=== PATIENT | male | born 1950 | race African-American/Black ===

== ENCOUNTER 2017-07-13 15:59 | Emergency (ER) | payer MEDICAID ==
[~2017-07-13] VITALS: Ht 188 cm; Wt 91.0 kg
[2017-07-13 18:22] LABS: BASOPHILS % 0.6 % (0.0-2.0); EOSINOPHILS % 0.4 % (0.0-5.0); HEMOGLOBIN. 12.5 g/dL (14.0-18.0); MEAN CORPUSCULAR HEMOGLOBIN 32.5 pg (28.0-32.0); MEAN CORPUSCULAR VOLUME 95.9 fL (80.0-94.0); MEAN PLATELET VOLUME 6.6 fl (7.4-10.4); PLATELET 260 x1000/uL (130-400); RED BLOOD CELL COUNT 3.85 mill/uL (4.7-6.1)
[2017-07-13 18:26] LABS: INR 1.2; PROTHROMBIN TIME 12.2 sec (9.4-11.6)
[2017-07-13 18:27] LABS: CHLORIDE 110 mEq/L (98-107)
[2017-07-13 18:32] LABS: ETHANOL BLOOD < 10 mg/dL
[2017-07-13 19:50] LABS: CLARITY URINE CLEAR (CLEAR); COLOR URINE DARK YELLOW (YELLOW); KETONES URINE TRACE (NEGATIVE); LEUKOCYTE ESTERASE URINE NEGATIVE (NEGATIVE); NITRITE URINE NEGATIVE (NEGATIVE); OCCULT BLOOD URINE NEGATIVE (NEGATIVE); PROTEIN URINE TRACE (NEGATIVE); SPECIFIC GRAVITY URINE 1.025 (1.005-1.030)
[2017-07-13 20:35] VITALS: BP 149/89
== END 2017-07-13 20:38 | disposition home or self-care (01) ==
LOC: ER 16:05
DX: S00.01XA Abrasion of scalp, initial encounter (principal); S00.81XA Abrasion of other part of head, initial encounter; E86.0 Dehydration; D53.9 Nutritional anemia, unspecified; R17 Unspecified jaundice; E87.8 Other disorders of electrolyte and fluid balance, not elsewhere classified; D72.810 Lymphocytopenia; F10.20 Alcohol dependence, uncomplicated; R26.81 Unsteadiness on feet; F17.200 Nicotine dependence, unspecified, uncomplicated; W18.39XA Other fall on same level, initial encounter; Y93.89 Activity, other specified; Y92.89 Other specified places as the place of occurrence of the external cause; Y99.8 Other external cause status; Y90.0 Blood alcohol level of less than 20 mg/100 ml
CPT/HCPCS: 36415; 70450; 71045; 80053; 80307; 81003; 83036; 83880; 84484; 85025; 85610; 93005; 99285; G0482